=== PATIENT | female | born 1995 | race Caucasian/White ===

== ENCOUNTER 2019-06-26 16:15 | Outpatient (CLI) | payer MEDICAID, SELFPAY ==
[2019-06-26 17:06] VITALS: BMI 43.0
[2019-06-26 17:35] LABS: Color, Urine Yellow (Yellow); Glucose, Dipstick Normal (Normal); Ketone-Dipstick 50 mg/dl (Negative); Leukocyte Esterase-Dipstick Negative /ul (Negative); Nitrite-Dipstick Negative (Negative); Occult Blood-Urine Negative /ul (Negative); Protein-Dipstick Negative (Negative); Urine Bilirubin Dipstick Negative (Negative); Urine Clarity Sl. Cloudy (Clear); Urine Urobilinogen Normal (Normal); Urine pH 6.5 (5.0 - 8.0)
[2019-06-26 17:49] LABS: Fetal Fibronectin Negative
--- NOTE | 2019-06-26 17:57 | PCM.HP.OB ---
History Date of Admission: 06/26/19 Final [place]: 09/03/19 Gestational age: 30 Weeks and 1 Days History of this : This is a 23 year-old, G [], P [], at weeks gestational age. Allergies cyanocobalamin (vitamin B12) Allergy (Verified 06/26/19 17:14) Swelling nitrofurantoin [From Macrobid] Allergy (Verified 06/26/19 17:11) Hives Home Medications: Home Medications Calcium Carbonate [Calcium] 500 mg PO DAILY 06/26/19 Famotidine [Pepcid] 20 mg PO BID 06/26/19 Vit No.130/Iron/Folic [ Tablet] 2 ea PO DAILY 06/26/19 NST - FHR Rate Baby A Baseline: 145 Variability:: Moderate Accelerations:: 15 x 15 Decelerations:: None Uterine Activity:: Irritability History Past Pregnancies: Past Pregnancies Delivery Date Name GA/ Weeks Outcome Route Wt Infant Sex Labor Length Anesthesia Delivery Location Provider FOB Labs: Seejanak Monson [facility] H/o PTD at 28 weeks Last delivery at 39 weeks 9 months ago Physical Exam General: Alert, Oriented x3 Abdomen: Soft, Non Tender, Non-Distended, Gravid Extremities:: No tenderness/swelling Neurological: Cranial nerves II-XII grossly intact [employer] APPRENTICE: Normal external genitalia Estimated gestational size: Appropriate for gestational size Cervix Dilation (cm): 1 Station: -3 Effacement (%): 60 Assessment/Plan This is a 23 year-old, at 30&1 weeks gestational age. Patient discussed with ([facility]) as sees that group. Discussed options with [facility] and will transport patient to [facility] in [place]. FFN sent Collect CBC & GBS Will give BMZ x1 and start IV ampicillin Plan of care discussed with patient & she agrees to transport.
[2019-06-26] MEDS: Betamethasone/Betamethasone 30 MG/5 ML Vial 12 MG IM (18:13)
[2019-06-26 18:27] LABS: Hematocrit 37.3 % (37-47); Hemoglobin 11.8 g/dL (12.0-15.0); Mean Corp Hgb Conc 31.6 g/dL (32-36); Mean Corpuscular Hgb 27.7 pg (27.0-32.0); Mean Corpuscular Volume 87.6 fL (81-99); Platelet Count 190 K/mm3 (150-450); RBC Distribution Width CV 13.7 % (11.6-14.6); RBC Distribution Width SD 43.3 fl (35.1-43.9); Red Blood Count 4.26 M/mm3 (4.2-5.4); White Blood Count 10.2 K/mm3 (4.4-11.0)
[2019-06-26 21:08] LABS: Group B Strep DNA By PCR Negative (Negative); Internal Control PASS; Probe Check PASS; Specimen Processing Control PASS
== END 2019-06-26 19:25 | disposition short-term general hospital (02) ==
LOC: WPOUT 16:59 → OBT 17:02
PROVIDERS: Visit Provider Obstetrics & Gynecology
DX: O36.8330 Maternal care for abnormalities of the fetal heart rate or rhythm, third trimester, not applicable or unspecified (principal); Z3A.30 30 weeks gestation of pregnancy; Z88.1 Allergy status to other antibiotic agents
CPT/HCPCS: 96365; 36415; 59025; 59050; 81002; 82731; 85027; 87081; 87653; 96372; 99218; G0378; J0702